=== PATIENT | female | born 1980 | race American Indian/Alaskan Native ===

== ENCOUNTER 2018-01-25 23:36 | Emergency (ER) | payer SELFPAY ==
[2018-01-25 23:42] VITALS: BP 116/74
[2018-01-26] MEDS ORDERED: MOTRIN PO ONE (01:18)
--- NOTE | 2018-01-26 03:35 | Emergency Department Report ---
Abscess Boil HPI - HPI Chief Complaint: Skin/Abscess/Foreign Body Stated Complaint: BUMP ON GENITAL AREA Time Seen by Provider: 01/26/18 03:30 Location: Other (pubic) History: Yes Pain, Yes Purulent Drainage, No Fever, No Numbness, No Foreign Body , No Previous History, No Insect Bite HPI: 37-year-old -[place] female presents to the emergency room for drainage bowl on her genitals 2 days. Patient denies any fever, chills no nausea no vomiting. Is taking [id number] Tylenol with no relief. Patient last menstrual period was 12/26/2017. Home Medications: Previous Rx's Medication Instructions Recorded Last Taken Type Cephalexin [Keflex] 500 mg PO BID #20 capsule 01/26/18 Unknown Rx Ibuprofen [Motrin 600 MG tab] 600 mg PO Q8H PRN #30 tablet 01/26/18 Unknown Rx Allergies/Adverse Reactions: Allergies Allergy/AdvReac Type Severity Reaction Status Date / Time No Known Allergies Allergy Unverified 01/26/18 01:18 ED Review of Systems ROS: Stated complaint: BUMP ON GENITAL AREA Other details as noted in HPI Comment: All other systems reviewed and negative Skin: lesions (genital) ED Past Medical Hx - Past Medical History Previous Medical History?: No - Surgical History Additional Surgical History: Hardware left lower leg - Social History Smoking Status: Never Smoker Substance Use Type: None - Medications Home Medications: Home Medications Medication Instructions Recorded Confirmed Last Taken Type Cephalexin [Keflex] 500 mg PO BID #20 capsule 01/26/18 Unknown Rx Ibuprofen [Motrin 600 MG tab] 600 mg PO Q8H PRN #30 tablet 01/26/18 Unknown Rx ED Abscess Boil Physical Exam - Exam General: Vital signs noted. No distress. Alert and acting appropriately. Size: 2 cm Exam: Yes Tenderness, Yes Normal Neurologic Exam, Yes Normal Circulation, No Fluctuance, No Surrounding Cellulites/Erythema, No Lymphangitis, No Crepitation , No Heart Murmur ED Course Vital Signs 01/25/18 01/26/18 23:41 01:13 Temperature 98.0 F 98 F Pulse Rate 79 78 Respiratory 18 16 Rate Blood Pressure 116/74 116/74 O2 Sat by Pulse 100 100 Oximetry Critical care attestation.: If time is entered above; I have spent that time in minutes in the direct care of this critically ill patient, excluding procedure time. ED Medical Decision Making - Medical Decision Making Patient's been seen by this provider in fast track. Abscesses started to drain no need to incision and drain. Discussed patient to complete antibiotics and take pain medication as needed. Returned to the emergency room or primary care provider if symptoms persist or gets worse. Patient verbalized understanding. ED Disposition Clinical Impression: Folliculitis Disposition: [id number] TO HOME OR SELFCARE Is pt being admited?: No Does the pt Need Aspirin: No Condition: Stable Instructions: Folliculitis (ED), Cephalexin (By mouth) Additional Instructions: Complete antibiotics as prescribed. Please warm compresses to abscess. Take pain medication as needed. If symptoms persist or gets worse please follow up with the primary care provider. Prescriptions: Cephalexin [Keflex] 500 mg PO BID #20 capsule Ibuprofen [Motrin 600 MG tab] 600 mg PO Q8H PRN #30 tablet PRN Reason: Pain Referrals: PRIMARY CARE, [Primary Care Provider] - 3-5 Days [facility] [Provider Group] - 3-5 Days Forms: Work/School Release Form(ED)
== END 2018-01-26 03:49 | disposition home or self-care (01) ==
LOC: ED 23:36
DX: L73.9 Follicular disorder, unspecified (principal); Z79.899 Other long term (current) drug therapy
CPT/HCPCS: 99282